=== PATIENT | male | born 1955 | race Caucasian/White ===

== ENCOUNTER 2020-01-31 18:46 | Emergency (ER) | payer BC, OTHER ==
[2020-01-31 19:03] VITALS: BP 152/93; PULSE 86; TEMP 99; BMI 27.8
--- NOTE | 2020-01-31 19:17 | PDOC ---
History of Present Illness - General Chief Complaint: Pain Stated Complaint: ABDOMINAL PAIN EPIGASTRUM WITH BLOATING Time Seen by Provider: 01/31/20 19:16 History Source: Patient Exam Limitations: No Limitations - History of Present Illness Initial Comments: 01/31/20 20:13 This is a 64-year-old male sent in by his doctor for evaluation of epigastric pain. Dr. Barth for a cardiogram. Patient has had approximately 2 days of epigastric pain and bloating. Patient has a risk factors significant for her coronary artery disease of hypertension only. Patient denies any nausea vomiting diarrhea. Patient denies any shortness of breath diaphoresis or any other complaints. Allergies: as per nursing notes Past Medical History: none Social history: Lives with family. No smoking. No alcohol. No illicit drugs. Surgical history: None General: No fevers or chills, no weakness, no weight loss HEENT: No change in vision. No sore throat,. No ear pain CardioVascular: no chest discomfort. No shortness of breath Respiratory:No cough, or wheezing. Gastrointestinal: no nausea, vomiting, diarrhea or constipation, No rectal bleeding, epigastric pain as per HPI Genitourinary: No dysuria, hematuria, or frequency Musculoskeletal: No joint or muscle pain or swelling Neurologic: No headache, vertigo, dizziness or loss of consciousness Psychiatric: nor depression Skin: No rashes or easy bruising Endocrine: no increased thirst or abnormal weight change Allergic: no skin or latex allergy All other systems reviewed and normal Exam: General: Well-nourished well-developed individual, no acute distress HEENT: Throat: Normal, tonsils normal, no erythema or exudate Neck: Supple, no meningeal signs, no lymphadenopathy Eyes::Pupils equal reactive and round, extraocular motion intact Chest: Nontender to palpation Cardiac: S1-S2 normal, regular rate and rhythm, no murmurs rubs or gallops Respiratory: Lungs clear to auscultation bilateral Abdomen: Soft, nondistended, normal bowel sounds, there is no tenderness on palpation diffusely Extremities: Warm, dry, no cyanosis, clubbing, or edema Skin: No rashes Neuro: Alert and oriented x3, CN II - XII intact, nonfocal exam with normal strength, normal sensation, normal reflexes, normal gait, Psych: Normal mood and affect Past History - Medical History Allergies/Adverse Reactions: Allergies Allergy/AdvReac Type Severity Reaction Status Date / Time No Known Allergies Allergy Unverified 01/31/20 18:48 Home Medications: Ambulatory Orders Simvastatin [Zocor] 20 mg PO HS 01/31/20 Tamsulosin HCl [Flomax] 1 cap PO DAILY 01/31/20 COPD: No GI Disorders: Yes (BARRETTE'S ESOPHAGUS) Hypercholesterolemia: Yes - Psycho-Social/Smoking History Smoking History: Never smoked Information on smoking cessation initiated: No - Substance Abuse Hx (Audit-C & DAST Scrn) How often the patient has a drink containing alcohol: 2-4 times / month Number of drinks the patient has on a typical day: 1 or 2 Score: In Men: 4 or > Positive; In Women: 3 or > Positive: 2 Screen Result (Pos requires Nsg. Audit-10AR): Negative In the last yr the pt used illegal drug/Rx for NonMed reason: No Score: Yes response is considered Positive: 0 Screen Result (Positive result requires Nsg. DAST-10): Negative *Physical Exam - Vital Signs Last Vital Signs Temp Pulse Resp BP Pulse Ox 99 F 86 18 152/93 99 01/31/20 18:47 01/31/20 18:47 01/31/20 18:47 01/31/20 18:47 01/31/20 18:47 ED Treatment Course - ADDITIONAL ORDERS Additional order review: Laboratory Results 01/31/20 01/31/20 19:24 19:24 Creatine Kinase 200 Troponin I < 0.03 Discharge - Discharge Information Problems reviewed: Yes Clinical Impression/Diagnosis: Epigastric pain Condition: Stable Disposition: HOME - Admission No - Follow up/Referral - Patient Discharge Instructions Additional Instructions: Your cardiogram did not show any acute significant pathology. Your blood work was normal. return to the emergency department immediately with ANY new, persistent or worsening symptoms. Continue any medications as previously prescribed by your physician. You should follow up with your primary doctor as soon as possible regarding today's emergency department visit. . Please make sure your doctor reviews the results of your emergency evaluation. Thank you for coming to the Emergency Department today for your care. It was a pleasure to see you today. Please note that your evaluation is INCOMPLETE until you follow-up with your doctor. - Post Discharge Activity
--- NOTE | 2020-02-02 07:08 | EKG ---
Test Reason : Blood Pressure : / mmHG Vent. Rate : 083 BPM Atrial Rate : 083 BPM P-R Int : 136 ms QRS Dur : 080 ms QT Int : 396 ms P-R-T Axes : 013 -12 022 degrees QTc Int : 465 ms SINUS RHYTHM WITH PREMATURE ATRIAL COMPLEXES POOR R WAVE PROGRESSION ABNORMAL ECG NO PREVIOUS ECGS AVAILABLE Confirmed by KEEGAN REEDER, ELY ([id number]) on 02/02/2020 7:08:05 AM Referred By: MD DILLON Confirmed By:ELY ALLISON MD
== END 2020-01-31 20:19 | disposition home or self-care (01) ==
LOC: FER 18:46
DX: R10.13 Epigastric pain (principal)
CPT/HCPCS: 36415; 82550; 82553; 84484; 93005; 99284-25